=== PATIENT | male | born 1955 | race African-American/Black ===

== ENCOUNTER 2018-06-29 05:24 | Inpatient (IN) ==
[2018-06-12 12:22] LABS: Basophils % 0.4 % (0.0-0.8); Eosinophils # 0.2 10*3/uL (0.0-0.87); Eosinophils % 2.4 % (0.00-10.9); Hematocrit 43.1 VOL% (42.0-52.0); Hemoglobin 13.8 GM/DL (14.0-18.0); Immature Granulocytes % 0.5 %; Immature Granulocytes Absolute 0.04 #; Lymphocytes % 38.7 % (21.2-54.2); Mean Corpuscular Volume 80.1 FL (87-102); Mean Platelet Volume 9.3 FL (9.6-12.0); Monocytes % 9.3 % (1.7-12.7); Neutrophils % 48.7 % (38.7-73.9); Platelet Count 278 T/CUMM (130-400); Red Blood Count 5.38 MC/CUMM (3.8-5.5); Red Cell Distribution Width 16.2 % (9.3-17.3); White Blood Count 7.8 T/CUMM (4-12)
[2018-06-12 12:26] LABS: Apearance,Urine CLEAR (Clear); Bilirubin,Urine Negative (Negative); Blood, Urine Negative (Negative); Glucose,Urine (UA) Negative (Negative); Ketones,Urine Negative (Negative); Nitrite,Urine Negative (Negative); Protein,Urine Negative; Urine Color Yellow (Yellow); Urine Urobilinogen < 2.0 EU/DL (0.2-1.0)
[2018-06-12 12:35] LABS: PT Patient Result 10.8 SECS; Partial Thromboplastin Time 24.9 SECS (0-40)
[2018-06-12 12:51] LABS: Albumin 4.4 G/DL (3.4-5.0); Bilirubin,Total 0.5 MG/DL (0.2-1.0); Calcium 9.6 MG/DL (8.5-10.1); Osmolality,Calculated 283.4 MOS/KG (273-304); Total Protein 7.3 G/DL (6.4-8.3)
[2018-06-29] MEDS ORDERED: DIAZEPAM 5 MG TABLET PO ONE (06:00)
[2018-06-29] MEDS ORDERED: VANCOMYCIN INJ 1,000 MG in SODIUM CHLORIDE 0.9% 250 ML IV ONE (06:00)
[2018-06-29] MEDS ORDERED: ACETAMINOPHEN 500 MG TABLET PO ONE (06:00)
[2018-06-29] MEDS ORDERED: ceFAZolin 2,000 MG in PREMIX 1 EACH IV ONE (06:00)
[2018-06-29] MEDS ORDERED: PREGABALIN 75 MG CAPSULE PO ONE (06:00)
[2018-06-29] MEDS ORDERED: FAMOTIDINE 20 MG TABLET PO ONE (06:00)
[2018-06-29] MEDS ORDERED: VANCOMYCIN 1,000 MG VIAL ONE (07:53)
[2018-06-29] MEDS ORDERED: PREGABALIN 75 MG CAPSULE ONE (07:53)
[2018-06-29] MEDS ORDERED: DIAZEPAM 5 MG TABLET ONE (07:54)
[2018-06-29] MEDS ORDERED: ACETAMINOPHEN 500 MG TABLET ONE (07:54)
[2018-06-29] MEDS ORDERED: LACTATED RINGERS 1,000 ML IV SCH (08:30)
[2018-06-29] MEDS ORDERED: DEXAMETHASONE 4 MG/1 ML VIAL ONE ×2 (11:25→13:57)
[2018-06-29] MEDS ORDERED: BUPIVACAINE 0.5% 50 ML VIAL ONE (11:25)
[2018-06-29] MEDS ORDERED: EPINEPHrine 1 MG/ML VIAL ONE (11:25)
[2018-06-29] MEDS ORDERED: LIDOCAINE 1% 5 ML VIAL ONE (11:31)
[2018-06-29] MEDS ORDERED: MAGNESIUM HYDROXIDE SUSP 30 ML UDCUP PO PRN (12:02)
[2018-06-29] MEDS ORDERED: ONDANSETRON 4 MG/2 ML VIAL IV PRN (12:02)
[2018-06-29] MEDS ORDERED: oxyCODONE IR 5 MG TABLET PO PRN ×2 (12:02)
[2018-06-29] MEDS ORDERED: diphenhydrAMINE CAP 25 MG CAPSULE PO PRN (12:02)
[2018-06-29] MEDS ORDERED: MORPHINE 4 MG/1 ML VIAL IV PRN ×2 (12:02)
[2018-06-29] MEDS ORDERED: ZALEPLON 5 MG CAPSULE PO PRN (12:02)
[2018-06-29] MEDS ORDERED: BACITRACIN OINT 0.9 GM PACK TOP ONE (12:48)
[2018-06-29] MEDS ORDERED: PHENYLEPHRINE DRIP 20 MG/250 ML PREMIX IV ONE (13:56)
[2018-06-29] MEDS ORDERED: PROPOFOL 200 MG/20 ML VIAL IV ONE (13:56)
[2018-06-29] MEDS ORDERED: MIDAZOLAM 2 MG/2 ML VIAL ONE (13:56)
[2018-06-29] MEDS ORDERED: SEVOFLURANE 1 UNIT/15 MINUTE INH ONE (13:56)
[2018-06-29] MEDS ORDERED: ONDANSETRON 4 MG/2 ML VIAL ONE (13:57)
[2018-06-29] MEDS ORDERED: ROCURONIUM 100 MG/10 ML VIAL IV ONE (13:57)
[2018-06-29] MEDS ORDERED: GLYCOPYRROLATE 0.4 MG/2 ML VIAL ONE (13:57)
[2018-06-29] MEDS ORDERED: KETOROLAC 30 MG/1 ML VIAL ONE (13:57)
[2018-06-29] MEDS ORDERED: PHENYLEPHRINE 1 MG/10 ML SYRINGE IV ONE (13:57)
[2018-06-29] MEDS ORDERED: fentaNYL 100 MCG/2 ML VIAL ONE (13:57)
[2018-06-29] MEDS ORDERED: LACTATED RINGERS 1,000 ML IV ONE (13:57)
[2018-06-29] MEDS ORDERED: NEOSTIGMINE 10 MG/10 ML VIAL ONE (13:58)
[2018-06-29 14:24] LABS: Apearance,Urine CLEAR (Clear); Bilirubin,Urine Negative (Negative); Blood, Urine Negative (Negative); Glucose,Urine (UA) Negative (Negative); Hyaline Casts,Urine 3 /LPF (0-3); Ketones,Urine Negative (Negative); Mucus,Urine Occasional /LPF (Occasional); Nitrite,Urine Negative (Negative); Protein,Urine Negative; Urine Color Yellow (Yellow); Urine Specific Gravity 1.013 (1.001-1.035); Urine Urobilinogen < 2.0 EU/DL (0.2-1.0); WBC,Urine <1 /HPF (0-6)
[2018-06-29] MEDS: LACTATED RINGERS 1,000 ML IV SCH ×2 (14:47→23:01)
[2018-06-29] MEDS: ACETAMINOPHEN 500 MG TABLET PO SCH ×2 (17:00→23:00)
[2018-06-29] MEDS: KETOROLAC 30 MG/1 ML VIAL IV SCH ×2 (17:18→23:00)
[2018-06-29] MEDS: ceFAZolin 2,000 MG in PREMIX 1 EACH IV SCH (17:19)
[2018-06-29] MEDS: SIMVASTATIN 20 MG TABLET PO SCH (20:26)
[2018-06-29] MEDS: EZETIMIBE 10 MG TABLET PO SCH (20:26)
[2018-06-29] MEDS: DOXAZOSIN 1 MG TABLET PO SCH (20:26)
[2018-06-29] MEDS: DOCUSATE SODIUM 100 MG CAPSULE PO SCH (20:26)
[2018-06-30] MEDS: ceFAZolin 2,000 MG in PREMIX 1 EACH IV SCH (01:13)
[2018-06-30 04:51] LABS: Basophils % 0.1 % (0.0-0.8); Hematocrit 33.2 VOL% (42.0-52.0); Immature Granulocytes % 0.8 %; Lymphocytes # 1.3 10*3/uL (1.4-4.0); Mean Corpuscular HGB Conc 33.1 GM/DL (32-36); Mean Corpuscular Volume 78.9 FL (87-102); Mean Platelet Volume 10.2 FL (9.6-12.0); Monocytes % 7.4 % (1.7-12.7); Neutrophils % 81.7 % (38.7-73.9); Platelet Count 188 T/CUMM (130-400); Red Blood Count 4.21 MC/CUMM (3.8-5.5); Red Cell Distribution Width 15.9 % (9.3-17.3); White Blood Count 12.8 T/CUMM (4-12)
[2018-06-30 05:15] LABS: Calcium 8.6 MG/DL (8.5-10.1); Osmolality,Calculated 287.5 MOS/KG (273-304)
[2018-06-30] MEDS: LACTATED RINGERS 1,000 ML IV SCH (05:15)
[2018-06-30] MEDS: KETOROLAC 30 MG/1 ML VIAL IV SCH ×2 (05:15→13:35)
[2018-06-30] MEDS: ACETAMINOPHEN 500 MG TABLET PO SCH ×2 (05:16→09:10)
[2018-06-30] MEDS ORDERED: DEXTROSE 50% 25 GM/50 ML SYRINGE IV PRN (06:10)
[2018-06-30] MEDS ORDERED: GLUCAGON 1 MG VIAL IM PRN (06:10)
[2018-06-30] MEDS: INSULIN LISPRO 100 UNIT/ML SUBCUT SCH ×4 (08:30→21:29)
[2018-06-30] MEDS ORDERED: ALISKIREN PO SCH (09:00)
[2018-06-30] MEDS ORDERED: HYDROCHLOROTHIAZIDE PO SCH (09:00)
[2018-06-30] MEDS: DOCUSATE SODIUM 100 MG CAPSULE PO SCH ×2 (09:10→21:30)
[2018-06-30] MEDS: DOXAZOSIN 1 MG TABLET PO SCH ×2 (09:10→21:30)
[2018-06-30] MEDS: FENOFIBRATE 160 MG TABLET PO SCH (09:10)
[2018-06-30] MEDS: ASPIRIN EC 81 MG TABLET PO SCH (09:10)
[2018-06-30] MEDS: CLOPIDOGREL 75 MG TABLET PO SCH (09:10)
[2018-06-30] MEDS: DILTIAZEM CD 240 MG CAPSULE PO SCH (09:10)
[2018-06-30] MEDS: INSULIN GLARGINE 100 UNIT/ML SUBCUT SCH (17:00)
[2018-06-30] MEDS: CELECOXIB 200 MG CAPSULE PO SCH (19:05)
[2018-06-30] MEDS ORDERED: ENOXAPARIN 30 MG/0.3 ML SYRINGE SUBCUT SCH (21:00)
[2018-06-30] MEDS: SIMVASTATIN 20 MG TABLET PO SCH (21:30)
[2018-06-30] MEDS: EZETIMIBE 10 MG TABLET PO SCH (21:30)
[2018-07-01 05:30] LABS: Basophils % 0.2 % (0.0-0.8); Eosinophils % 0.2 % (0.00-10.9); Hematocrit 30.2 VOL% (42.0-52.0); Hemoglobin 10.2 GM/DL (14.0-18.0); Immature Granulocytes % 0.5 %; Immature Granulocytes Absolute 0.06 #; Lymphocytes # 1.9 10*3/uL (1.4-4.0); Lymphocytes % 16.3 % (21.2-54.2); Mean Corpuscular HGB Conc 33.8 GM/DL (32-36); Mean Corpuscular Volume 78.9 FL (87-102); Mean Platelet Volume 10.7 FL (9.6-12.0); Monocytes % 8.2 % (1.7-12.7); Neutrophils % 74.6 % (38.7-73.9); Platelet Count 173 T/CUMM (130-400); Red Blood Count 3.83 MC/CUMM (3.8-5.5); Red Cell Distribution Width 15.9 % (9.3-17.3); White Blood Count 11.6 T/CUMM (4-12)
[2018-07-01 05:55] LABS: Calcium 8.4 MG/DL (8.5-10.1); Osmolality,Calculated 290.5 MOS/KG (273-304)
[2018-07-01] MEDS: DOXAZOSIN 1 MG TABLET PO SCH ×2 (08:20→20:59)
[2018-07-01] MEDS: ASPIRIN EC 81 MG TABLET PO SCH (08:20)
[2018-07-01] MEDS: CLOPIDOGREL 75 MG TABLET PO SCH (08:20)
[2018-07-01] MEDS: CELECOXIB 200 MG CAPSULE PO SCH (08:20)
[2018-07-01] MEDS: FENOFIBRATE 160 MG TABLET PO SCH (08:20)
[2018-07-01] MEDS: INSULIN GLARGINE 100 UNIT/ML SUBCUT SCH (08:21)
[2018-07-01] MEDS: DILTIAZEM CD 240 MG CAPSULE PO SCH (08:21)
[2018-07-01] MEDS: DOCUSATE SODIUM 100 MG CAPSULE PO SCH ×2 (08:21→20:59)
[2018-07-01] MEDS: INSULIN LISPRO 100 UNIT/ML SUBCUT SCH ×5 (08:22→21:00)
[2018-07-01] MEDS: SODIUM CHLORIDE 0.9% 1,000 ML IV SCH ×2 (09:42→19:00)
[2018-07-01] MEDS ORDERED: INSULIN GLARGINE 100 UNIT/ML SUBCUT SCH (15:55)
[2018-07-01] MEDS: EZETIMIBE 10 MG TABLET PO SCH (20:59)
[2018-07-01] MEDS: SIMVASTATIN 20 MG TABLET PO SCH (20:59)
[2018-07-02 05:34] LABS: Basophils % 0.3 % (0.0-0.8); Eosinophils # 0.1 10*3/uL (0.0-0.87); Eosinophils % 1.3 % (0.00-10.9); Hematocrit 30.6 VOL% (42.0-52.0); Hemoglobin 10.1 GM/DL (14.0-18.0); Immature Granulocytes % 1.1 %; Immature Granulocytes Absolute 0.11 #; Lymphocytes # 2.5 10*3/uL (1.4-4.0); Lymphocytes % 25.5 % (21.2-54.2); Mean Corpuscular Volume 78.7 FL (87-102); Mean Platelet Volume 10.1 FL (9.6-12.0); Monocytes % 9.5 % (1.7-12.7); Neutrophils % 62.3 % (38.7-73.9); Platelet Count 176 T/CUMM (130-400); Red Blood Count 3.89 MC/CUMM (3.8-5.5); White Blood Count 9.9 T/CUMM (4-12)
[2018-07-02] MEDS: CLOPIDOGREL 75 MG TABLET PO SCH (08:09)
[2018-07-02] MEDS: ASPIRIN EC 81 MG TABLET PO SCH (08:09)
[2018-07-02] MEDS: DOXAZOSIN 1 MG TABLET PO SCH (08:09)
[2018-07-02] MEDS: DILTIAZEM CD 240 MG CAPSULE PO SCH (08:09)
[2018-07-02] MEDS: DOCUSATE SODIUM 100 MG CAPSULE PO SCH (08:09)
[2018-07-02] MEDS: FENOFIBRATE 160 MG TABLET PO SCH (08:10)
[2018-07-02] MEDS: INSULIN LISPRO 100 UNIT/ML SUBCUT SCH ×3 (08:11→12:20)
[2018-07-02 12:22] VITALS: BP 142/80
== END 2018-07-02 12:55 | disposition home health service (06) | DRG 470 ==
LOC: N.SDSINP 05:24 → N.3E 15:04
PROVIDERS: ADMIT Orthopaedic Surgery; ATTEND Orthopaedic Surgery

== ENCOUNTER 2021-10-08 08:47 | Inpatient (IN) ==
[2021-10-08] MEDS ORDERED: DEXTROSE 10% 250 ML BAG IV PRN (08:55)
[2021-10-08] MEDS ORDERED: GLUCAGON 1 MG VIAL IM PRN (08:55)
[2021-10-08] MEDS ORDERED: NITROGLYCERIN SL 0.4 MG TABLET SL PRN (09:02)
[2021-10-08] MEDS ORDERED: CLORAZEPATE 3.75 MG TABLET PO PRN (09:02)
[2021-10-08] MEDS ORDERED: MORPHINE 2 MG/1 ML SYRINGE IV PRN (09:02)
[2021-10-08 09:32] LABS: Basophils % 0.4 % (0.0-0.8); Eosinophils # 0.1 10*3/uL (0.0-0.87); Eosinophils % 1.2 % (0.00-10.9); Hematocrit 38.8 VOL% (42.0-52.0); Hemoglobin 12.7 GM/DL (14.0-18.0); Immature Granulocytes % 0.6 %; Immature Granulocytes Absolute 0.06 #; Lymphocytes # 2.7 10*3/uL (1.4-4.0); Lymphocytes % 26.3 % (21.2-54.2); Mean Corpuscular HGB Conc 32.7 GM/DL (32-36); Mean Platelet Volume 9.3 FL (9.6-12.0); Monocytes % 9.4 % (1.7-12.7); Neutrophils % 62.1 % (38.7-73.9); Platelet Count 286 T/CUMM (130-400); Red Blood Count 4.91 MC/CUMM (3.8-5.5); Red Cell Distribution Width 16.2 % (9.3-17.3); White Blood Count 10.2 T/CUMM (4-12)
[2021-10-08 09:51] LABS: Albumin 3.7 G/DL (3.4-5.0); Bilirubin,Total 0.4 MG/DL (0.20-1.00); Calcium 9.4 MG/DL (8.5-10.1); Osmolality,Calculated 287.3 MOS/KG (273-304); Potassium 3.3 MMOL/L (3.5-5.1); Total Protein 6.7 G/DL (6.4-8.2)
[2021-10-08] MEDS ORDERED: POTASSIUM CHLORIDE 20 MEQ TABLET PO ONE (09:58)
[2021-10-08 10:09] LABS: Arterial Base Excess iSTAT 2 MMOL/L (-2.5-2.5); Arterial Bicarbonate iSTAT 26.4 MMOL/L (20-26); Arterial O2 Saturation iSTAT 97 % (95-100); Arterial PCO2 iSTAT 40 MM HG (35-48); Arterial PO2 iSTAT 85 MM HG (80-95); Arterial Total CO2 iSTAT 28 MMO/L (23-27); Arterial pH iSTAT 7.424 (7.35-7.45)
[2021-10-08] MEDS: CHLORHEXIDINE 0.12% ORAL RINSE 60 ML BOTTLE SWISH/SPIT SCH ×2 (11:00→22:14)
[2021-10-08] MEDS: INSULIN REGULAR 100 UNIT/ML SUBCUT SCH ×3 (12:45→22:14)
[2021-10-08] MEDS: CHLORHEXIDINE 4% SOLN 118 ML BOTTLE TOP SCH ×2 (16:13→22:14)
[2021-10-08] MEDS ORDERED: LATANOPROST 0.005% OPH SOLN 2.5 ML BOTTLE BOTH EYES SCH (21:00)
[2021-10-08] MEDS ORDERED: ROSUVASTATIN 20 MG TABLET PO SCH (21:00)
[2021-10-08] MEDS: carvediloL 3.125 MG TABLET PO SCH (22:13)
[2021-10-08] MEDS: DOXAZOSIN 1 MG TABLET PO SCH (22:13)
[2021-10-08] MEDS: FLUTICASONE 50 MCG NASAL SPRAY 16 GM BOTTLE BOTH NARES SCH (22:13)
[2021-10-08] MEDS: DILTIAZEM CD 240 MG CAPSULE PO SCH (22:13)
[2021-10-09] MEDS ORDERED: VANCOMYCIN 500 MG VIAL ONE (04:52)
[2021-10-09] MEDS ORDERED: PAPAVERINE 60 MG/2 ML VIAL ONE ×2 (04:52→09:09)
[2021-10-09] MEDS ORDERED: VANCOMYCIN 1,000 MG VIAL ONE (04:52)
[2021-10-09] MEDS ORDERED: CEFUROXIME INJ 1,500 MG in SODIUM CHLORIDE 0.9% 100 ML IV ONE (05:00)
[2021-10-09 05:06] LABS: Basophils % 0.5 % (0.0-0.8); Eosinophils # 0.2 10*3/uL (0.0-0.87); Eosinophils % 2.9 % (0.00-10.9); Hematocrit 37.2 VOL% (42.0-52.0); Hemoglobin 12.2 GM/DL (14.0-18.0); Immature Granulocytes % 0.7 %; Immature Granulocytes Absolute 0.06 #; Lymphocytes # 3.2 10*3/uL (1.4-4.0); Lymphocytes % 38.2 % (21.2-54.2); Mean Corpuscular HGB Conc 32.8 GM/DL (32-36); Mean Corpuscular Volume 78.5 FL (87-102); Mean Platelet Volume 9.1 FL (9.6-12.0); Monocytes # 0.8 10*3/uL (0.11-0.8); Monocytes % 9.7 % (1.7-12.7); Platelet Count 249 T/CUMM (130-400); Red Blood Count 4.74 MC/CUMM (3.8-5.5); Red Cell Distribution Width 16.1 % (9.3-17.3); White Blood Count 8.3 T/CUMM (4-12)
[2021-10-09] MEDS: CHLORHEXIDINE 4% SOLN 118 ML BOTTLE TOP SCH (05:22)
[2021-10-09 05:32] LABS: Calcium 9.4 MG/DL (8.5-10.1); Osmolality,Calculated 281.5 MOS/KG (273-304); Potassium 3.4 MMOL/L (3.5-5.1)
[2021-10-09] MEDS ORDERED: DIAZEPAM 5 MG TABLET PO ONE (06:00)
[2021-10-09] MEDS ORDERED: PANTOPRAZOLE 40 MG TABLET PO ONE (06:00)
[2021-10-09] MEDS ORDERED: AMINOCAPROIC ACID 5,000 MG/20 ML VIAL ONE (06:10)
[2021-10-09] MEDS ORDERED: VECURONIUM 10 MG VIAL IV ONE (06:10)
[2021-10-09] MEDS ORDERED: HEPARIN/NACL 0.9% 2 UNITS/ML 1,000 UNIT/500 ML BAG IV ONE (06:10)
[2021-10-09] MEDS ORDERED: SUFentanil 250 MCG/5 ML AMP ONE (06:10)
[2021-10-09] MEDS ORDERED: ETOMIDATE 40 MG/20 ML VIAL IV ONE (06:10)
[2021-10-09] MEDS ORDERED: SEVOFLURANE 1 UNIT/15 MINUTE INH ONE (06:10)
[2021-10-09] MEDS ORDERED: SODIUM CHLORIDE 0.9% 250 ML IV ONE (06:10)
[2021-10-09] MEDS ORDERED: LIDOCAINE 2% 5 ML VIAL ONE ×2 (06:10→10:55)
[2021-10-09] MEDS ORDERED: MINERAL OIL/PETROLATUM OPH OINT 3.5 GM TUBE ONE (06:10)
[2021-10-09] MEDS ORDERED: ePHEDrine 50 MG/ML VIAL ONE (06:10)
[2021-10-09] MEDS ORDERED: LACTATED RINGERS 1,000 ML IV ONE (06:10)
[2021-10-09] MEDS ORDERED: SODIUM CHLORIDE 0.9% 1,000 ML IV ONE (06:10)
[2021-10-09] MEDS ORDERED: NITROGLYCERIN DRIP 50 MG/250 ML BOTTLE IV ONE (06:10)
[2021-10-09] MEDS ORDERED: MIDAZOLAM 10 MG/2 ML VIAL ONE ×3 (06:10)
[2021-10-09] MEDS ORDERED: PHENYLEPHRINE DRIP 20 MG/250 ML PREMIX IV ONE (06:10)
[2021-10-09] MEDS ORDERED: CALCIUM CHLORIDE 1,000 MG/10 ML VIAL IV ONE (06:10)
[2021-10-09] MEDS ORDERED: HYDROCORTISONE 100 MG VIAL ONE (06:24)
[2021-10-09] MEDS ORDERED: FUROSEMIDE 20 MG/2 ML VIAL ONE ×2 (06:24→10:57)
[2021-10-09 07:27] LABS: ABG Base Excess 1.7 MMOL/L (-2.5-2.5); ABG HCO3 25.9 MMOL/L (20-26); ABG Oxygen Saturation 99.7 % (95-100); ABG PCO2 42.8 MM HG (35-48); ABG PH 7.403 (7.35-7.45); ABG TCO2 23.6 MMOL/L (23-27); Glucose Heart Surgery 100 MG/DL (74-106); Hematocrit Heart Surgery 37.1 PERCENT (42-52); Ionized Calcium Arterial 1.26 MMOL/L (1.21-1.46); PCO2 Patient Temp Arterial 42.8 MMHG; PH Patient Temp Arterial 7.403; Patient Temperature 37 CELCIUS; Potassium Heart/CVR 3.5 MMOL/L (3.5-5.1); Sodium Heart/CVR 140 MMOL/L (135-145)
[2021-10-09] MEDS ORDERED: ALBUMIN 5% 25.0 GM/500 ML VIAL IV ONE (08:21)
[2021-10-09] MEDS ORDERED: POTASSIUM CHLORIDE RIDER 20 MEQ/100 ML PREMIX IV ONE (08:21)
[2021-10-09] MEDS ORDERED: PHENYLEPHRINE DRIP 40 MG/250 ML PREMIX IV ONE (08:21)
[2021-10-09] MEDS: SODIUM CHLORIDE 0.9% 1,000 ML IV SCH (09:05)
[2021-10-09] MEDS: INSULIN REGULAR 100 UNIT/ML SUBCUT SCH ×2 (09:05→14:03)
[2021-10-09] MEDS: DOXAZOSIN 1 MG TABLET PO SCH (09:06)
[2021-10-09] MEDS: DILTIAZEM CD 240 MG CAPSULE PO SCH (09:06)
[2021-10-09] MEDS: carvediloL 3.125 MG TABLET PO SCH (09:07)
[2021-10-09] MEDS: CHLORHEXIDINE 0.12% ORAL RINSE 60 ML BOTTLE SWISH/SPIT SCH (09:07)
[2021-10-09] MEDS: FLUTICASONE 50 MCG NASAL SPRAY 16 GM BOTTLE BOTH NARES SCH (09:07)
[2021-10-09 09:25] LABS: Hematocrit Heart Surgery 26.2 PERCENT (42-52); Hemoglobin Heart Surgery 8.4 G/DL (14.0-18.0); PCO2 Patient Temp Venous 41.7 MM HG; PH Patient Temp Venous 7.399; PO2 Patient Temp Venous 40.7 MM HG; Potassium Heart/CVR 4.3 MMOL/L (3.5-5.1); VBG Base Excess 1.1 MEQ/L (0-4); VBG HCO3 25.2 MEQ/L (24-28); VBG Oxygen Saturation 81.6 %; VBG PCO2 48.2 MMHG (41-51); VBG PH 7.356; VBG PO2 49.9 MMHG (17-40); VBG Total CO2 25.2 MMOL/L
[2021-10-09] MEDS ORDERED: diphenhydrAMINE 50 MG/1 ML VIAL ONE (09:37)
[2021-10-09] MEDS ORDERED: FAMOTIDINE 20 MG/2 ML VIAL IV ONE (09:37)
[2021-10-09 09:55] LABS: Hematocrit Heart Surgery 28.6 PERCENT (42-52); Hemoglobin Heart Surgery 9.2 G/DL (14.0-18.0); PCO2 Patient Temp Venous 40.6 MM HG; PH Patient Temp Venous 7.397; PO2 Patient Temp Venous 42.8 MM HG; Potassium Heart/CVR 4.2 MMOL/L (3.5-5.1); VBG Base Excess 0.3 MEQ/L (0-4); VBG HCO3 24.5 MEQ/L (24-28); VBG Oxygen Saturation 83.3 %; VBG PH 7.354; VBG PO2 52.5 MMHG (17-40); VBG Total CO2 24.2 MMOL/L
[2021-10-09] MEDS ORDERED: ESMOLOL 100 MG/10 ML VIAL IV ONE (10:11)
[2021-10-09 10:23] LABS: Hematocrit Heart Surgery 26.8 PERCENT (42-52); Hemoglobin Heart Surgery 8.6 G/DL (14.0-18.0); PCO2 Patient Temp Venous 41.7 MM HG; PH Patient Temp Venous 7.385; PO2 Patient Temp Venous 37.8 MM HG; Potassium Heart/CVR 4.4 MMOL/L (3.5-5.1); VBG Base Excess 0.1 MEQ/L (0-4); VBG HCO3 24.2 MEQ/L (24-28); VBG Oxygen Saturation 73.9 %; VBG PH 7.357; VBG PO2 43.4 MMHG (17-40); VBG Total CO2 24.1 MMOL/L
[2021-10-09] MEDS ORDERED: THROMBIN TOPICAL (RECOMBINANT) 5,000 UNIT VIAL TOP ONE (10:32)
[2021-10-09 10:51] LABS: ABG Base Excess -0.7 MMOL/L (-2.5-2.5); ABG HCO3 23.8 MMOL/L (20-26); ABG Oxygen Saturation 99.4 % (95-100); ABG PCO2 41.4 MM HG (35-48); ABG PH 7.378 (7.35-7.45); ABG TCO2 22.5 MMOL/L (23-27); Glucose Heart Surgery 258 MG/DL (74-106); Hematocrit Heart Surgery 27.3 PERCENT (42-52); Hemoglobin Heart Surgery 8.8 G/DL (14.0-18.0); Ionized Calcium Arterial 1.18 MMOL/L (1.21-1.46); PCO2 Patient Temp Arterial 41.4 MMHG; PH Patient Temp Arterial 7.378; Patient Temperature 37 CELCIUS; Potassium Heart/CVR 3.9 MMOL/L (3.5-5.1); Sodium Heart/CVR 134 MMOL/L (135-145)
[2021-10-09] MEDS ORDERED: ALBUMIN 25% 25 GM/100 ML VIAL IV ONE (10:55)
[2021-10-09] MEDS ORDERED: MAGNESIUM SULFATE 5 GM/10 ML VIAL IV ONE (10:55)
[2021-10-09] MEDS ORDERED: PROTAMINE SULFATE 250 MG/25 ML VIAL IV ONE (10:56)
[2021-10-09] MEDS ORDERED: methylPREDNISolone SOD SUC 1,000 MG/8 ML VIAL ONE (10:56)
[2021-10-09] MEDS ORDERED: HEPARIN 10,000 UNIT/10 ML VIAL ONE (10:56)
[2021-10-09] MEDS ORDERED: DEXTROSE 5% KCL 20 MEQ 20 MEQ/1,000 ML BAG IV ONE (10:56)
[2021-10-09] MEDS ORDERED: MANNITOL 12.5 GM/50 ML VIAL IV ONE (10:57)
[2021-10-09] MEDS ORDERED: SODIUM BICARBONATE 50 MEQ/50 ML VIAL IV ONE (10:57)
[2021-10-09] MEDS ORDERED: PROTAMINE SULFATE 50 MG/5 ML VIAL IV ONE (10:57)
[2021-10-09] MEDS ORDERED: POTASSIUM CHLORIDE 20 MEQ/10 ML VIAL ONE (10:59)
[2021-10-09] MEDS ORDERED: CALCIUM CHLORIDE 1,000 MG/10 ML SYRINGE IV PRN (11:43)
[2021-10-09] MEDS ORDERED: INSULIN REGULAR 100 UNIT/ML IV PRN (11:43)
[2021-10-09] MEDS ORDERED: INSULIN REGULAR DRIP 100 ML IV SCH (11:43)
[2021-10-09] MEDS ORDERED: INSULIN REGULAR 100 UNIT/ML IV ONE (11:43)
[2021-10-09] MEDS ORDERED: ONDANSETRON 4 MG/2 ML VIAL IV PRN (11:43)
[2021-10-09] MEDS ORDERED: CHLORHEXIDINE 4% SOLN 118 ML BOTTLE TOP PRN (11:43)
[2021-10-09] MEDS ORDERED: MAGNESIUM SULF RIDER 2 GM/50 ML PREMIX IV PRN (11:43)
[2021-10-09] MEDS ORDERED: ACETAMINOPHEN 650 MG SUPP RECTAL PRN (11:43)
[2021-10-09] MEDS ORDERED: PHENYLEPHRINE DRIP 40 MG/250 ML PREMIX IV PRN (11:43)
[2021-10-09] MEDS ORDERED: ALBUMIN 5% 12.5 GM/250 ML VIAL IV PRN (11:43)
[2021-10-09] MEDS ORDERED: MIDAZOLAM 10 MG/2 ML VIAL IV PRN (11:43)
[2021-10-09] MEDS ORDERED: VECURONIUM 10 MG VIAL IV PRN ×2 (11:43)
[2021-10-09] MEDS ORDERED: MAGNESIUM SULF RIDER 4 GM/100 ML PREMIX IV PRN (11:43)
[2021-10-09] MEDS ORDERED: MIDAZOLAM 2 MG/2 ML VIAL IV PRN (11:43)
[2021-10-09] MEDS ORDERED: NITROPRUSSIDE 100 MG in DEXTROSE 5% 250 ML IV PRN (11:43)
[2021-10-09] MEDS ORDERED: LACTATED RINGERS 250 ML IV PRN (11:43)
[2021-10-09] MEDS ORDERED: DEXTROSE 50% 25 GM/50 ML SYRINGE IV PRN ×2 (11:43)
[2021-10-09] MEDS ORDERED: SODIUM CHLORIDE 0.45% 1,000 ML IV SCH ×2 (11:43)
[2021-10-09 11:52] LABS: ABG Base Excess 0.8 MMOL/L (-2.5-2.5); ABG HCO3 25.1 MMOL/L (20-26); ABG Oxygen Saturation 98.9 % (95-100); ABG PCO2 40.5 MM HG (35-48); ABG PH 7.407 (7.35-7.45); ABG TCO2 23.5 MMOL/L (23-27); Glucose Heart Surgery 233 MG/DL (74-106); Hematocrit Heart Surgery 27.7 PERCENT (42-52); Hemoglobin Heart Surgery 8.9 G/DL (14.0-18.0)
[2021-10-09 11:55] LABS: Basophils % 0.2 % (0.0-0.8); Eosinophils # 0.1 10*3/uL (0.0-0.87); Hematocrit 25.6 VOL% (42.0-52.0); Hemoglobin 8.5 GM/DL (14.0-18.0); Immature Granulocytes % 1.6 %; Immature Granulocytes Absolute 0.15 #; Lymphocytes # 1.5 10*3/uL (1.4-4.0); Lymphocytes % 16.5 % (21.2-54.2); Mean Corpuscular HGB Conc 33.2 GM/DL (32-36); Mean Corpuscular Volume 78.8 FL (87-102); Mean Platelet Volume 9.1 FL (9.6-12.0); Monocytes # 0.3 10*3/uL (0.11-0.8); Monocytes % 3.5 % (1.7-12.7); Neutrophils % 77.2 % (38.7-73.9); Platelet Count 189 T/CUMM (130-400); Red Blood Count 3.25 MC/CUMM (3.8-5.5); White Blood Count 9.2 T/CUMM (4-12)
[2021-10-09 12:06] LABS: INR 1.2; PT Patient Result 13.4 SECS (10.1-12.1); Partial Thromboplastin Time 28.7 SECS (23.7-32.9)
[2021-10-09] MEDS: POTASSIUM CHLORIDE RIDER 20 MEQ/100 ML PREMIX IV PRN ×4 (12:20→23:33)
[2021-10-09 12:29] LABS: Albumin 3.3 G/DL (3.4-5.0); Bilirubin,Total 0.7 MG/DL (0.20-1.00); Calcium 9.3 MG/DL (8.5-10.1); Osmolality,Calculated 282.1 MOS/KG (273-304); Potassium 4.2 MMOL/L (3.5-5.1); Total Protein 5.3 G/DL (6.4-8.2)
[2021-10-09 12:38] LABS: CKMB % 6.46 %
[2021-10-09 12:39] LABS: High Sensitive Troponin I* 5722.6 ng/L (0-78)
[2021-10-09] MEDS ORDERED: LACTATED RINGERS 1,000 ML IV PRN (13:33)
[2021-10-09 13:42] LABS: ABG Base Excess 0.2 MMOL/L (-2.5-2.5); ABG HCO3 24.6 MMOL/L (20-26); ABG Oxygen Saturation 97.5 % (95-100); ABG PCO2 39.1 MM HG (35-48); ABG PH 7.408 (7.35-7.45); ABG TCO2 22.2 MMOL/L (23-27); Glucose Heart Surgery 232 MG/DL (74-106); Hemoglobin Heart Surgery 10.7 G/DL (14.0-18.0); Potassium Heart/CVR 3.9 MMOL/L (3.5-5.1)
[2021-10-09] MEDS: POTASSIUM CHLORIDE RIDER 10 MEQ/100 ML PREMIX IV PRN ×2 (14:30→20:27)
[2021-10-09] MEDS ORDERED: NITROPRUSSIDE 50 MG/2 ML VIAL ONE (14:44)
[2021-10-09] MEDS: MORPHINE 10 MG/1 ML VIAL IV PRN ×2 (17:48→19:53)
[2021-10-09] MEDS: CEFUROXIME INJ 1,500 MG in SODIUM CHLORIDE 0.9% 100 ML IV SCH (18:57)
[2021-10-09 19:19] LABS: ABG Base Excess -1.8 MMOL/L (-2.5-2.5); ABG HCO3 22.9 MMOL/L (20-26); ABG Oxygen Saturation 98.8 % (95-100); ABG PCO2 39.8 MM HG (35-48); ABG PH 7.374 (7.35-7.45); Glucose Heart Surgery 145 MG/DL (74-106); Hematocrit Heart Surgery 32.9 PERCENT (42-52); Hemoglobin Heart Surgery 10.7 G/DL (14.0-18.0); Potassium Heart/CVR 3.6 MMOL/L (3.5-5.1)
[2021-10-09 19:45] LABS: CKMB % 6.72 %
[2021-10-09 19:49] LABS: High Sensitive Troponin I* 9423.9 ng/L (0-78)
[2021-10-09] MEDS ORDERED: FUROSEMIDE 40 MG/4 ML VIAL IV PRN (20:02)
[2021-10-09] MEDS ORDERED: CHLORHEXIDINE 0.12% ORAL RINSE 60 ML BOTTLE SWISH/SPIT SCH (21:00)
[2021-10-09 21:05] LABS: ABG Base Excess -2.1 MMOL/L (-2.5-2.5); ABG HCO3 22.7 MMOL/L (20-26); ABG Oxygen Saturation 98.8 % (95-100); ABG PCO2 39.9 MM HG (35-48); ABG PH 7.369 (7.35-7.45); ABG TCO2 20.8 MMOL/L (23-27); Glucose Heart Surgery 166 MG/DL (74-106); Hematocrit Heart Surgery 32.6 PERCENT (42-52); Hemoglobin Heart Surgery 10.6 G/DL (14.0-18.0); Potassium Heart/CVR 4.2 MMOL/L (3.5-5.1)
[2021-10-09 22:11] LABS: ABG Base Excess -1.3 MMOL/L (-2.5-2.5); ABG HCO3 23.3 MMOL/L (20-26); ABG Oxygen Saturation 98.6 % (95-100); ABG PCO2 40.9 MM HG (35-48); ABG PH 7.373 (7.35-7.45); ABG TCO2 21.5 MMOL/L (23-27); Glucose Heart Surgery 172 MG/DL (74-106); Hematocrit Heart Surgery 32.8 PERCENT (42-52); Hemoglobin Heart Surgery 10.6 G/DL (14.0-18.0); Potassium Heart/CVR 4.1 MMOL/L (3.5-5.1)
[2021-10-09 23:26] LABS: ABG Base Excess -1.2 MMOL/L (-2.5-2.5); ABG HCO3 23.4 MMOL/L (20-26); ABG Oxygen Saturation 98.2 % (95-100); ABG PH 7.381 (7.35-7.45); ABG TCO2 21.5 MMOL/L (23-27); Glucose Heart Surgery 170 MG/DL (74-106); Hematocrit Heart Surgery 32.8 PERCENT (42-52); Hemoglobin Heart Surgery 10.6 G/DL (14.0-18.0); Potassium Heart/CVR 3.9 MMOL/L (3.5-5.1)
[2021-10-10] MEDS: POTASSIUM CHLORIDE RIDER 10 MEQ/100 ML PREMIX IV PRN (00:13)
[2021-10-10 01:23] LABS: ABG Base Excess -1.1 MMOL/L (-2.5-2.5); ABG HCO3 23.4 MMOL/L (20-26); ABG Oxygen Saturation 95.9 % (95-100); ABG PH 7.383 (7.35-7.45); ABG PO2 82.8 MM HG (80-95); ABG TCO2 21.5 MMOL/L (23-27); Glucose Heart Surgery 155 MG/DL (74-106); Hematocrit Heart Surgery 33.3 PERCENT (42-52); Hemoglobin Heart Surgery 10.8 G/DL (14.0-18.0); Potassium Heart/CVR 4.2 MMOL/L (3.5-5.1)
[2021-10-10] MEDS: MORPHINE 10 MG/1 ML VIAL IV PRN ×2 (02:55→08:25)
[2021-10-10 03:37] LABS: ABG Base Excess -0.1 MMOL/L (-2.5-2.5); ABG HCO3 24.4 MMOL/L (20-26); ABG Oxygen Saturation 97.4 % (95-100); ABG PCO2 40.4 MM HG (35-48); ABG PH 7.395 (7.35-7.45); ABG PO2 97.7 MM HG (80-95); Basophils % 0.1 % (0.0-0.8); Glucose Heart Surgery 139 MG/DL (74-106); Hematocrit 31.9 VOL% (42.0-52.0); Hematocrit Heart Surgery 36.4 PERCENT (42-52); Hemoglobin 10.6 GM/DL (14.0-18.0); Hemoglobin Heart Surgery 11.8 G/DL (14.0-18.0); Immature Granulocytes % 0.7 %; Immature Granulocytes Absolute 0.12 #; Lymphocytes # 1.1 10*3/uL (1.4-4.0); Lymphocytes % 6.5 % (21.2-54.2); Mean Corpuscular HGB Conc 33.2 GM/DL (32-36); Mean Corpuscular Volume 79.2 FL (87-102); Mean Platelet Volume 9.8 FL (9.6-12.0); Monocytes # 1.1 10*3/uL (0.11-0.8); Monocytes % 6.5 % (1.7-12.7); Neutrophils % 86.2 % (38.7-73.9); Platelet Count 222 T/CUMM (130-400); Red Blood Count 4.03 MC/CUMM (3.8-5.5); Red Cell Distribution Width 15.9 % (9.3-17.3); White Blood Count 16.6 T/CUMM (4-12)
[2021-10-10 03:59] LABS: Albumin 3.5 G/DL (3.4-5.0); Bilirubin,Direct 0.12 MG/DL (0.0-0.20); Bilirubin,Total 0.4 MG/DL (0.20-1.00); Calcium 9.2 MG/DL (8.5-10.1); Osmolality,Calculated 287.3 MOS/KG (273-304); Potassium 4.1 MMOL/L (3.5-5.1); Total Protein 6.2 G/DL (6.4-8.2)
[2021-10-10 04:06] LABS: CKMB % 9.21 %
[2021-10-10 04:10] LABS: High Sensitive Troponin I* 14334.4 ng/L (0-78)
[2021-10-10] MEDS ORDERED: GLUCAGON 1 MG VIAL IM PRN ×3 (05:22→08:48)
[2021-10-10] MEDS ORDERED: DEXTROSE 10% 250 ML BAG IV PRN ×2 (05:30→08:48)
[2021-10-10] MEDS: CEFUROXIME INJ 1,500 MG in SODIUM CHLORIDE 0.9% 100 ML IV SCH ×2 (06:16→18:16)
[2021-10-10] MEDS ORDERED: NITROGLYCERIN SL 0.4 MG TABLET SL PRN (07:38)
[2021-10-10] MEDS: INSULIN REGULAR 100 UNIT/ML SUBCUT SCH ×4 (08:45→20:43)
[2021-10-10] MEDS ORDERED: POTASSIUM CHLORIDE 20 MEQ TABLET PO PRN (08:48)
[2021-10-10] MEDS ORDERED: ONDANSETRON 4 MG/2 ML VIAL IV PRN (08:48)
[2021-10-10] MEDS ORDERED: DEXTROSE 50% 25 GM/50 ML VIAL IV PRN (08:48)
[2021-10-10] MEDS ORDERED: ALUMINUM/MAGNES/SIMETH MAX STR 30 ML UDCUP PO PRN (08:48)
[2021-10-10] MEDS ORDERED: ZALEPLON 5 MG CAPSULE PO PRN (08:48)
[2021-10-10] MEDS ORDERED: MAGNESIUM HYDROXIDE SUSP 30 ML UDCUP PO PRN (08:48)
[2021-10-10] MEDS ORDERED: ACETAMINOPHEN 325 MG TABLET PO PRN (08:48)
[2021-10-10] MEDS ORDERED: MAGNESIUM SULF RIDER 2 GM/50 ML PREMIX IV PRN (08:48)
[2021-10-10] MEDS ORDERED: MAGNESIUM SULF RIDER 4 GM/100 ML PREMIX IV PRN (08:48)
[2021-10-10] MEDS: DOCUSATE SODIUM 100 MG CAPSULE PO SCH (09:11)
[2021-10-10] MEDS: ASPIRIN EC 81 MG TABLET PO SCH (09:11)
[2021-10-10] MEDS: FENOFIBRATE 160 MG TABLET PO SCH (09:11)
[2021-10-10] MEDS: carvediloL 6.25 MG TABLET PO SCH ×2 (09:11→20:43)
[2021-10-10] MEDS: FERROUS SULFATE 325 MG TABLET PO SCH (09:12)
[2021-10-10] MEDS: PANTOPRAZOLE 40 MG TABLET PO SCH (09:12)
[2021-10-10] MEDS: CHLORHEXIDINE 0.12% ORAL RINSE 60 ML BOTTLE SWISH/SPIT SCH ×2 (09:13→20:44)
[2021-10-10] MEDS: SODIUM CHLOR 0.45% KCL 20 MEQ 20 MEQ/1,000 ML BAG IV SCH (09:14)
[2021-10-10 14:41] LABS: CKMB % 7.18 %; High Sensitive Troponin I* 14148.9 ng/L (0-78)
[2021-10-10] MEDS: oxyCODONE/ACETAMINOPHEN 5-325 MG TABLET PO PRN (19:17)
[2021-10-10] MEDS: EZETIMIBE 10 MG TABLET PO SCH (20:44)
[2021-10-10] MEDS ORDERED: SIMVASTATIN 20 MG TABLET PO SCH (21:00)
[2021-10-10] MEDS ORDERED: ROSUVASTATIN 20 MG TABLET PO SCH (21:00)
[2021-10-11] MEDS ORDERED: FUROSEMIDE 40 MG/4 ML VIAL IV ONE (06:00)
[2021-10-11 06:08] LABS: Basophils % 0.1 % (0.0-0.8); Hemoglobin 10.3 GM/DL (14.0-18.0); Immature Granulocytes % 2.6 %; Immature Granulocytes Absolute 0.51 #; Lymphocytes # 1.5 10*3/uL (1.4-4.0); Lymphocytes % 7.3 % (21.2-54.2); Mean Corpuscular HGB Conc 33.2 GM/DL (32-36); Mean Corpuscular Volume 80.1 FL (87-102); Mean Platelet Volume 9.7 FL (9.6-12.0); Monocytes # 1.7 10*3/uL (0.11-0.8); Monocytes % 8.6 % (1.7-12.7); Neutrophils % 81.4 % (38.7-73.9); Platelet Count 212 T/CUMM (130-400); Red Blood Count 3.87 MC/CUMM (3.8-5.5); Red Cell Distribution Width 15.9 % (9.3-17.3)
[2021-10-11 06:28] LABS: Albumin 3.3 G/DL (3.4-5.0); Bilirubin,Direct 0.13 MG/DL (0.0-0.20); Bilirubin,Total 0.4 MG/DL (0.20-1.00); Calcium 9.3 MG/DL (8.5-10.1); Osmolality,Calculated 286.5 MOS/KG (273-304); Potassium 4.3 MMOL/L (3.5-5.1); Total Protein 6.3 G/DL (6.4-8.2)
[2021-10-11 06:30] LABS: Hypochromia Slight; Lymphocytes 14 % (20-55); Microcytosis Slight; Platelet Estimate Adequate; Total Cells Counted 100
[2021-10-11 07:00] LABS: Alanine Aminotransferase 35 U/L (16-61); Albumin 3.3 G/DL (3.4-5.0); Alkaline Phosphatase 46 U/L (45-117); Aspartate Amino Transferase 110 U/L (0-37); Bilirubin,Direct < 0.100 MG/DL (0.0-0.20); Bilirubin,Indirect 0.3 MG/DL (0.0-1.0); CKMB % 5.21 %; Total Protein 5.9 G/DL (6.4-8.2)
[2021-10-11] MEDS: oxyCODONE/ACETAMINOPHEN 5-325 MG TABLET PO PRN (08:01)
[2021-10-11] MEDS: FENOFIBRATE 160 MG TABLET PO SCH (08:01)
[2021-10-11] MEDS: ASPIRIN EC 81 MG TABLET PO SCH (08:02)
[2021-10-11] MEDS: DOCUSATE SODIUM 100 MG CAPSULE PO SCH (08:02)
[2021-10-11] MEDS: carvediloL 6.25 MG TABLET PO SCH (08:02)
[2021-10-11] MEDS: PANTOPRAZOLE 40 MG TABLET PO SCH (08:02)
[2021-10-11] MEDS: FERROUS SULFATE 325 MG TABLET PO SCH (08:02)
[2021-10-11] MEDS: INSULIN GLARGINE 100 UNIT/ML SUBCUT SCH (08:02)
[2021-10-11] MEDS: INSULIN REGULAR 100 UNIT/ML SUBCUT SCH ×4 (08:03→20:34)
[2021-10-11] MEDS: CHLORHEXIDINE 0.12% ORAL RINSE 60 ML BOTTLE SWISH/SPIT SCH ×2 (08:06→20:34)
[2021-10-11] MEDS: SODIUM CHLOR 0.45% KCL 20 MEQ 20 MEQ/1,000 ML BAG IV SCH (10:02)
[2021-10-11] MEDS: ASCORBIC ACID 500 MG TABLET PO SCH ×2 (10:02→20:34)
[2021-10-11] MEDS: DOXAZOSIN 1 MG TABLET PO SCH (10:03)
[2021-10-11] MEDS: carvediloL 12.5 MG TABLET PO SCH ×2 (10:03→20:34)
[2021-10-11] MEDS: EZETIMIBE 10 MG TABLET PO SCH (20:34)
[2021-10-11] MEDS: ROSUVASTATIN 20 MG TABLET PO SCH (20:34)
[2021-10-12 05:04] LABS: Basophils % 0.1 % (0.0-0.8); Eosinophils % 0.1 % (0.00-10.9); Hemoglobin 9.4 GM/DL (14.0-18.0); Immature Granulocytes % 1.3 %; Lymphocytes # 2.3 10*3/uL (1.4-4.0); Lymphocytes % 15.6 % (21.2-54.2); Mean Corpuscular HGB Conc 32.4 GM/DL (32-36); Mean Corpuscular Volume 81.5 FL (87-102); Mean Platelet Volume 10.3 FL (9.6-12.0); Monocytes # 1.6 10*3/uL (0.11-0.8); Monocytes % 10.6 % (1.7-12.7); NRBC # 0.04 10*3/uL; Neutrophils % 72.3 % (38.7-73.9); Platelet Count 208 T/CUMM (130-400); Red Blood Count 3.56 MC/CUMM (3.8-5.5); Red Cell Distribution Width 15.9 % (9.3-17.3)
[2021-10-12 05:26] LABS: Albumin 2.7 G/DL (3.4-5.0); Bilirubin,Direct 0.17 MG/DL (0.0-0.20); Bilirubin,Total 0.4 MG/DL (0.20-1.00); Osmolality,Calculated 292.1 MOS/KG (273-304); Potassium 3.8 MMOL/L (3.5-5.1); Total Protein 5.6 G/DL (6.4-8.2)
[2021-10-12 05:29] LABS: Albumin 2.7 G/DL (3.4-5.0); Bilirubin,Direct 0.15 MG/DL (0.0-0.20); Bilirubin,Indirect 0.4 MG/DL (0.0-1.0); Bilirubin,Total 0.5 MG/DL (0.20-1.00); CKMB % 2.49 %; High Sensitive Troponin I* 15622.7 ng/L (0-78); Total Protein 5.3 G/DL (6.4-8.2)
[2021-10-12] MEDS: INSULIN REGULAR 100 UNIT/ML SUBCUT SCH ×4 (08:57→21:29)
[2021-10-12] MEDS: CHLORHEXIDINE 0.12% ORAL RINSE 60 ML BOTTLE SWISH/SPIT SCH ×2 (08:58→21:30)
[2021-10-12] MEDS: DOCUSATE SODIUM 100 MG CAPSULE PO SCH (08:59)
[2021-10-12] MEDS: ASCORBIC ACID 500 MG TABLET PO SCH ×2 (08:59→21:29)
[2021-10-12] MEDS: carvediloL 25 MG TABLET PO SCH ×2 (09:00→16:05)
[2021-10-12] MEDS: DOXAZOSIN 1 MG TABLET PO SCH (09:00)
[2021-10-12] MEDS: FERROUS SULFATE 325 MG TABLET PO SCH (09:00)
[2021-10-12] MEDS: oxyCODONE/ACETAMINOPHEN 5-325 MG TABLET PO PRN (09:00)
[2021-10-12] MEDS: ASPIRIN EC 81 MG TABLET PO SCH (09:01)
[2021-10-12] MEDS: PANTOPRAZOLE 40 MG TABLET PO SCH (09:01)
[2021-10-12] MEDS: FENOFIBRATE 160 MG TABLET PO SCH (09:04)
[2021-10-12] MEDS: INSULIN GLARGINE 100 UNIT/ML SUBCUT SCH (11:19)
[2021-10-12] MEDS: EZETIMIBE 10 MG TABLET PO SCH (21:29)
[2021-10-12] MEDS: ROSUVASTATIN 20 MG TABLET PO SCH (21:30)
[2021-10-13 05:51] LABS: Basophils % 0.2 % (0.0-0.8); Eosinophils # 0.1 10*3/uL (0.0-0.87); Eosinophils % 0.9 % (0.00-10.9); Hematocrit 28.9 VOL% (42.0-52.0); Hemoglobin 9.6 GM/DL (14.0-18.0); Immature Granulocytes % 1.4 %; Immature Granulocytes Absolute 0.15 #; Lymphocytes # 2.6 10*3/uL (1.4-4.0); Lymphocytes % 24.4 % (21.2-54.2); Mean Corpuscular HGB Conc 33.2 GM/DL (32-36); Mean Corpuscular Volume 79.4 FL (87-102); Mean Platelet Volume 10.2 FL (9.6-12.0); Monocytes # 1.2 10*3/uL (0.11-0.8); Monocytes % 10.9 % (1.7-12.7); NRBC # 0.04 10*3/uL; Neutrophils % 62.2 % (38.7-73.9); Platelet Count 214 T/CUMM (130-400); Red Blood Count 3.64 MC/CUMM (3.8-5.5); Red Cell Distribution Width 15.8 % (9.3-17.3); White Blood Count 10.6 T/CUMM (4-12)
[2021-10-13 06:16] LABS: Calcium 9.4 MG/DL (8.5-10.1); Osmolality,Calculated 288.1 MOS/KG (273-304); Potassium 3.5 MMOL/L (3.5-5.1)
[2021-10-13] MEDS: POLYETHYLENE GLYCOL POWDER 17 GM PACK PO SCH (08:10)
[2021-10-13] MEDS: FENOFIBRATE 160 MG TABLET PO SCH (08:11)
[2021-10-13] MEDS: carvediloL 25 MG TABLET PO SCH ×2 (08:11→16:00)
[2021-10-13] MEDS: INSULIN GLARGINE 100 UNIT/ML SUBCUT SCH (08:11)
[2021-10-13] MEDS: ASCORBIC ACID 500 MG TABLET PO SCH ×2 (08:11→20:30)
[2021-10-13] MEDS: ASPIRIN EC 81 MG TABLET PO SCH (08:12)
[2021-10-13] MEDS: PANTOPRAZOLE 40 MG TABLET PO SCH (08:12)
[2021-10-13] MEDS: DOCUSATE SODIUM 100 MG CAPSULE PO SCH (08:12)
[2021-10-13] MEDS: oxyCODONE/ACETAMINOPHEN 5-325 MG TABLET PO PRN (08:12)
[2021-10-13] MEDS: FERROUS SULFATE 325 MG TABLET PO SCH (08:12)
[2021-10-13] MEDS: INSULIN REGULAR 100 UNIT/ML SUBCUT SCH ×4 (08:13→20:30)
[2021-10-13] MEDS: CHLORHEXIDINE 0.12% ORAL RINSE 60 ML BOTTLE SWISH/SPIT SCH ×2 (08:14→20:31)
[2021-10-13] MEDS: DILTIAZEM CD 180 MG CAPSULE PO SCH (08:19)
[2021-10-13] MEDS: EZETIMIBE 10 MG TABLET PO SCH (20:30)
[2021-10-13] MEDS: ROSUVASTATIN 20 MG TABLET PO SCH (20:30)
[2021-10-14 05:52] LABS: Basophils % 0.2 % (0.0-0.8); Eosinophils # 0.2 10*3/uL (0.0-0.87); Eosinophils % 1.9 % (0.00-10.9); Hematocrit 29.6 VOL% (42.0-52.0); Hemoglobin 9.7 GM/DL (14.0-18.0); Immature Granulocytes % 1.3 %; Immature Granulocytes Absolute 0.13 #; Lymphocytes # 2.3 10*3/uL (1.4-4.0); Lymphocytes % 23.8 % (21.2-54.2); Mean Corpuscular HGB Conc 32.8 GM/DL (32-36); Mean Corpuscular Volume 81.5 FL (87-102); Mean Platelet Volume 10.3 FL (9.6-12.0); Monocytes % 10.5 % (1.7-12.7); NRBC # 0.02 10*3/uL; Neutrophils % 62.3 % (38.7-73.9); Platelet Count 257 T/CUMM (130-400); Red Blood Count 3.63 MC/CUMM (3.8-5.5); Red Cell Distribution Width 15.9 % (9.3-17.3); White Blood Count 9.6 T/CUMM (4-12)
[2021-10-14 06:22] LABS: Calcium 8.9 MG/DL (8.5-10.1); Osmolality,Calculated 290.8 MOS/KG (273-304); Potassium 3.7 MMOL/L (3.5-5.1)
[2021-10-14 06:29] LABS: Alanine Aminotransferase 29 U/L (16-61); Albumin 2.6 G/DL (3.4-5.0); Alkaline Phosphatase 43 U/L (45-117); Aspartate Amino Transferase 44 U/L (0-37); Bilirubin,Indirect 0.3 MG/DL (0.0-1.0); Blood Urea Nitrogen 26 MG/DL (7-18); Calcium 9.1 MG/DL (8.5-10.1); Carbon Dioxide 26 MMOL/L (21-32); Chloride 108 MMOL/L (98-107); Glucose 84 MG/DL (74-106); Osmolality,Calculated 284.3 MOS/KG (273-304); Potassium 3.5 MMOL/L (3.5-5.1); Sodium 141 MMOL/L (136-145); Total Protein 5.7 G/DL (6.4-8.2)
[2021-10-14] MEDS: INSULIN GLARGINE 100 UNIT/ML SUBCUT SCH (09:12)
[2021-10-14] MEDS: POLYETHYLENE GLYCOL POWDER 17 GM PACK PO SCH (09:12)
[2021-10-14] MEDS: oxyCODONE/ACETAMINOPHEN 5-325 MG TABLET PO PRN (09:13)
[2021-10-14] MEDS: ASPIRIN EC 81 MG TABLET PO SCH (09:13)
[2021-10-14] MEDS: FERROUS SULFATE 325 MG TABLET PO SCH (09:13)
[2021-10-14] MEDS: DILTIAZEM CD 180 MG CAPSULE PO SCH (09:13)
[2021-10-14] MEDS: FENOFIBRATE 160 MG TABLET PO SCH (09:13)
[2021-10-14] MEDS: ASCORBIC ACID 500 MG TABLET PO SCH (09:14)
[2021-10-14] MEDS: DOCUSATE SODIUM 100 MG CAPSULE PO SCH (09:14)
[2021-10-14] MEDS: PANTOPRAZOLE 40 MG TABLET PO SCH (09:14)
[2021-10-14] MEDS: carvediloL 25 MG TABLET PO SCH (09:15)
[2021-10-14] MEDS: INSULIN REGULAR 100 UNIT/ML SUBCUT SCH ×2 (09:15→12:22)
[2021-10-14] MEDS: CHLORHEXIDINE 0.12% ORAL RINSE 60 ML BOTTLE SWISH/SPIT SCH (09:15)
[2021-10-14 12:41] VITALS: BP 124/78
== END 2021-10-14 14:10 | disposition home health service (06) | DRG 236 ==
LOC: N.TELEN 08:47 → N.CVR 10-09 11:13 → N.ICU 10-10 10:07 → N.TELES 10-11 08:31